=== PATIENT | female | born 1980 | race Caucasian/White ===

== ENCOUNTER 2016-11-19 16:18 | Emergency (ER) | payer SELFPAY ==
[~2016-11-19] VITALS: Ht 175.3 cm; Wt 70.0 kg
[2016-11-19 16:20] VITALS: BP 135/85
[2016-11-19] MEDS ORDERED: METF500T4 PO (16:25)
[2016-11-19] MEDS ORDERED: PLEASE ENTER ALLERGIES MC SCH ×2 (17:00)
[2016-11-19] MEDS ORDERED: MAALOX/HYOSCYAMINE/LIDOCAINE 45 ML BOTTLE PO ONE (17:00)
[2016-11-19 17:09] LABS: BLOOD UREA NITROGEN 6 mg/dL (7-18)
[2016-11-19 17:14] LABS: ASPARTATE AMINO TRANSFERASE 173 U/L (15-37)
[2016-11-19 17:16] LABS: IS PT STATUS REG ER OR PRE ER? YES
== END 2016-11-19 19:40 | disposition home or self-care (01) ==
LOC: ED 18:45
DX: F10.120 Alcohol abuse with intoxication, uncomplicated (principal); F10.10 Alcohol abuse, uncomplicated; E11.9 Type 2 diabetes mellitus without complications
CPT/HCPCS: 36415; 71010; 80053; 84484; 85025; 93005